=== PATIENT | male | born 1955 | race Caucasian/White ===

== ENCOUNTER 2016-09-02 09:32 | Inpatient (IN) | payer OTHER ==
[~2016-09-02] VITALS: Ht 182.9 cm; Wt 99.2 kg
[~2016-09-02 09:32] MED LIST: Aspirin PO; Cipro PO; FOLIC ACID1 MG PO; GLIMEPIRIDE2 MG PO; GLUCOPHAGE500 MG PO; Glucophage XR,Fortam PO; LANSOPRAZOLE15 MG PO; LEVITRA10 MG PO; LIBRIUM25 MG PO; LISINOPRIL-HCT1 EAC3; LOFIBRA,TRIGLI160 MG PO; Librium PO; MEDROL DOSEPAK4 MG PO; PRAVACHOL80 MG PO; Theragran PO; ULTRAM50 MG PO; VICODIN,LORT1 TABLET PO; ZANTAC150 MG PO; Zestoretic,Prinzide PO
[2016-09-02 09:54] LABS: POINT-OF-CARE METER ID UU13113778
[2016-09-02 10:18] LABS: BASOPHIL COUNT 0.1 K/uL (0-0.1); EOSINOPHIL (%) 0.5 % (0-5); HEMATOCRIT 34.9 % (38.0-50.0); IMMATURE GRANULOCYTE (%) 0.8 % (0.0-0.7); IMMATURE GRANULOCYTE COUNT 0.1 K/uL; INSTRUMENT ABS NEUTROPHIL CT 5.8 K/uL; LYMPHOCYTE COUNT 0.8 K/uL (1.0-2.8); MCH 34.8 PG (29.0-34.0); MCHC 35.8 G/DL (30.0-36.0); MCV 97.2 FL (86-99); MEAN PLAT.VOLUME 10.6 uM^3 (9.0-12.4); MONOCYTE (%) 8.1 % (3-12); MONOCYTE COUNT 0.6 K/uL (0-0.8); NEUTROPHIL COUNT 5.8 K/uL (1.8-6.4); PLATELET COUNT 118 K/uL (156-360); RBC DIS.WIDTH-CV 12.9 % (11.8-14.6); RBC DIS.WIDTH-SD 46.6 % (39-53); RED BLOOD COUNT 3.59 M/uL (4.00-5.50); WHITE BLOOD COUNT 7.3 K/uL (4.1-10.2)
[2016-09-02 10:27] LABS: CHLORIDE 94 mEq/L (99-109); POTASSIUM 3.1 mEq/L (3.7-5.4); SODIUM 131 mEq/L (136-147)
[2016-09-02 10:29] LABS: GLUCOSE 158 mg/dL (70-99)
[2016-09-02 10:30] LABS: ANION GAP 21 MEQ/L (2-14)
[2016-09-02 10:31] LABS: TOTAL BILIRUBIN 2.2 mg/dL (0.0-1.0)
[2016-09-02 10:32] LABS: ALKALINE PHOSPHATASE 98 IU/L (3-129); SERUM ETHYL ALCOHOL < 10 mg/dL
[2016-09-02 10:33] LABS: GFR ESTIMATE (CALCULATED) 50 mL/min/
[2016-09-02 10:34] LABS: UREA NITROGEN (BUN) 27 mg/dL (9-23)
[2016-09-02 10:36] LABS: LIPASE 676 U/L (1.0-51.0)
[2016-09-02] MEDS ORDERED: DICLOFENAC SODI50 MG PO (12:57)
[2016-09-02] MEDS ORDERED: OMEPRAZOLE40 M1 PO (12:57)
[2016-09-02] MEDS ORDERED: METFORMIN HCL1000 MG PO (12:57)
[2016-09-02] MEDS ORDERED: METFORMIN HCL500 MG PO (12:58)
[2016-09-02] MEDS ORDERED: ASPIRIN EC325 MG PO (12:58)
[2016-09-02 13:22] LABS: ADD MIUA? YES; BILIRUBIN NEGATIVE; BLOOD NEGATIVE; COLOR YELLOW ((YELLOW)); GLUCOSE (STRIP) 50; KETONES 20; LEUKOCYTES NEGATIVE; NITRITE NEGATIVE; PROTEIN (STRIP) 100; SPECIFIC GRAVITY 1.034 (1.000-1.030)
[2016-09-02 13:26] LABS: BACTERIA RARE /HPF; EPITHELIAL CELLS NONE SEEN /HPF; MUCUS TRACE /LPF; RED BLOOD CELLS 0-5 /HPF (0-5); UCUL ADDED? NO; WHITE BLOOD CELLS 0-5 /HPF (0-5)
[2016-09-02 15:50] VITALS: BP 137/79
[2016-09-02 19:30] VITALS: BP 114/61
[2016-09-02 23:43] VITALS: BP 129/84
[2016-09-03 00:01] LABS: POINT-OF-CARE USER ID 608261329
[2016-09-03 04:40] VITALS: BP 125/69
[2016-09-03 07:07] LABS: ALKALINE PHOSPHATASE 71 IU/L (3-129); ANION GAP 13 MEQ/L (2-14); CHLORIDE 101 MEQ/L (99-109); GFR ESTIMATE (CALCULATED) > 59 mL/min/; LIPASE 480 U/L (1.0-51.0); POTASSIUM 3.2 MEQ/L (3.7-5.4); SAMPLE HEMOLYSIS CHECK 0; SAMPLE ICTERIC CHECK 0; SAMPLE LIPEMIA CHECK 0; SODIUM 135 MEQ/L (136-147); TOTAL BILIRUBIN 1.5 MG/DL (0.0-1.0); UREA NITROGEN (BUN) 23 mg/dL (9-23)
[2016-09-03 07:10] LABS: GLUCOSE 105 mg/dL (70-99)
[2016-09-03 08:20] VITALS: BP 144/92
[2016-09-03 12:36] LABS: POINT-OF-CARE METER ID UU13113725
[2016-09-03 17:02] VITALS: BP 121/71
[2016-09-03 18:33] LABS: POINT-OF-CARE METER ID UU13113725
[2016-09-04 07:31] LABS: BASOPHIL COUNT 0.1 K/uL (0-0.1); EOSINOPHIL (%) 3.4 % (0-5); EOSINOPHIL COUNT 0.1 K/uL (0-0.3); HEMATOCRIT 26.6 % (38.0-50.0); INSTRUMENT ABS NEUTROPHIL CT 2.5 K/uL; LYMPHOCYTE COUNT 0.8 K/uL (1.0-2.8); MCH 35.6 PG (29.0-34.0); MCHC 35.7 G/DL (30.0-36.0); MCV 99.6 FL (86-99); MEAN PLAT.VOLUME 10.3 uM^3 (9.0-12.4); MONOCYTE (%) 9.1 % (3-12); MONOCYTE COUNT 0.4 K/uL (0-0.8); NEUTROPHIL (%) 63.9 % (45-76); NEUTROPHIL COUNT 2.5 K/uL (1.8-6.4); PLATELET COUNT 84 K/uL (156-360); RBC DIS.WIDTH-CV 13.7 % (11.8-14.6); RBC DIS.WIDTH-SD 49.4 % (39-53)
[2016-09-04 07:33] LABS: ANION GAP 15 MEQ/L (2-14); CHLORIDE 102 MEQ/L (99-109); GFR ESTIMATE (CALCULATED) > 59 mL/min/; GLUCOSE 91 mg/dL (70-99); LIPASE 364 U/L (1.0-51.0); POTASSIUM 3.3 MEQ/L (3.7-5.4); SAMPLE HEMOLYSIS CHECK 0; SAMPLE ICTERIC CHECK 0; SAMPLE LIPEMIA CHECK 0; SODIUM 137 MEQ/L (136-147); UREA NITROGEN (BUN) 16 mg/dL (9-23)
[2016-09-04 07:40] LABS: RED BLOOD COUNT 2.67 M/uL (4.00-5.50); WHITE BLOOD COUNT 3.9 K/uL (4.1-10.2)
[2016-09-04 12:00] VITALS: BP 135/76
[2016-09-04 17:07] VITALS: BP 137/85
[2016-09-04 19:51] VITALS: BP 154/79
[2016-09-04 22:38] VITALS: BP 139/89
[2016-09-05 03:16] VITALS: BP 131/75
[2016-09-05 05:14] LABS: BASOPHIL COUNT 0.1 K/uL (0-0.1); EOSINOPHIL (%) 2.7 % (0-5); EOSINOPHIL COUNT 0.1 K/uL (0-0.3); HEMATOCRIT 27.4 % (38.0-50.0); IMMATURE GRANULOCYTE (%) 2.2 % (0.0-0.7); IMMATURE GRANULOCYTE COUNT 0.1 K/uL; INSTRUMENT ABS NEUTROPHIL CT 2.4 K/uL; LYMPHOCYTE COUNT 0.7 K/uL (1.0-2.8); MCH 34.8 PG (29.0-34.0); MCHC 35.4 G/DL (30.0-36.0); MCV 98.2 FL (86-99); MEAN PLAT.VOLUME 10.2 uM^3 (9.0-12.4); MONOCYTE (%) 16.1 % (3-12); MONOCYTE COUNT 0.7 K/uL (0-0.8); NEUTROPHIL (%) 60.4 % (45-76); NEUTROPHIL COUNT 2.4 K/uL (1.8-6.4); PLATELET COUNT 101 K/uL (156-360); RBC DIS.WIDTH-CV 13.4 % (11.8-14.6); RBC DIS.WIDTH-SD 48.9 % (39-53); RED BLOOD COUNT 2.79 M/uL (4.00-5.50)
[2016-09-05 05:50] LABS: ANION GAP 12 MEQ/L (2-14); CHLORIDE 101 MEQ/L (99-109); GFR ESTIMATE (CALCULATED) > 59 mL/min/; GLUCOSE 113 mg/dL (70-99); LIPASE 280 U/L (1.0-51.0); POTASSIUM 2.9 MEQ/L (3.7-5.4); SAMPLE HEMOLYSIS CHECK 0; SAMPLE ICTERIC CHECK 0; SAMPLE LIPEMIA CHECK 0; SODIUM 137 MEQ/L (136-147); UREA NITROGEN (BUN) 9 mg/dL (9-23)
[2016-09-05 06:02] LABS: C-REACTIVE PROTEIN 17.6 MG/L (0-10)
[2016-09-05 09:05] VITALS: BP 159/92
[2016-09-05 11:10] LABS: POINT-OF-CARE METER ID UU13113725
[2016-09-05 16:33] LABS: POINT-OF-CARE METER ID UU13113725
[2016-09-05 18:09] VITALS: BP 127/81
[2016-09-05 21:09] LABS: POINT-OF-CARE METER ID UU13113725
[2016-09-05 23:53] VITALS: BP 154/87
[2016-09-06 06:49] VITALS: BP 141/80
[2016-09-06 08:00] LABS: EOSINOPHIL (%) 3.9 % (0-5); EOSINOPHIL COUNT 0.1 K/uL (0-0.3); HEMATOCRIT 26.8 % (38.0-50.0); IMMATURE GRANULOCYTE (%) 2.7 % (0.0-0.7); IMMATURE GRANULOCYTE COUNT 0.1 K/uL; INSTRUMENT ABS NEUTROPHIL CT 1.5 K/uL; LYMPHOCYTE COUNT 0.8 K/uL (1.0-2.8); MCH 34.4 PG (29.0-34.0); MCHC 34.7 G/DL (30.0-36.0); MCV 99.3 FL (86-99); MEAN PLAT.VOLUME 10.1 uM^3 (9.0-12.4); MONOCYTE (%) 21.4 % (3-12); MONOCYTE COUNT 0.7 K/uL (0-0.8); NEUTROPHIL (%) 45.8 % (45-76); NEUTROPHIL COUNT 1.5 K/uL (1.8-6.4); RBC DIS.WIDTH-CV 13.8 % (11.8-14.6); RBC DIS.WIDTH-SD 49.5 % (39-53); WHITE BLOOD COUNT 3.3 K/uL (4.1-10.2)
[2016-09-06 08:15] LABS: PLATELET COUNT 154 K/uL (156-360)
[2016-09-06 08:43] LABS: ANION GAP 8 MEQ/L (2-14); CHLORIDE 105 MEQ/L (99-109); GFR ESTIMATE (CALCULATED) > 59 mL/min/; GLUCOSE 123 mg/dL (70-99); LIPASE 223 U/L (1.0-51.0); POTASSIUM 3.4 MEQ/L (3.7-5.4); SAMPLE HEMOLYSIS CHECK 0; SAMPLE ICTERIC CHECK 0; SAMPLE LIPEMIA CHECK 0; SODIUM 138 MEQ/L (136-147); UREA NITROGEN (BUN) 9 mg/dL (9-23)
[2016-09-06 11:05] VITALS: BP 154/89
[2016-09-06] MEDS ORDERED: ASPIRIN EC325 MG PO (12:58)
[2016-09-06] MEDS ORDERED: KLOR-CON M2020 MEQ PO (12:59)
[2016-09-06] MEDS ORDERED: ZOCOR20 MG PO (13:14)
[2016-09-06] MEDS ORDERED: VALSARTAN160 MG PO (13:14)
== END 2016-09-06 13:35 | disposition home or self-care (01) | DRG 439 ==
LOC: EME 09:32 → 5EAST 14:10 → EDOF 14:10 → 5EAST 15:51
PROVIDERS: Emergency Medicine; Family Medicine Sports Medicine
DX: K85.90 Acute pancreatitis without necrosis or infection, unspecified (principal); K80.20 Calculus of gallbladder without cholecystitis without obstruction; L98.419 Non-pressure chronic ulcer of buttock with unspecified severity; F10.229 Alcohol dependence with intoxication, unspecified; E87.6 Hypokalemia; E87.1 Hypo-osmolality and hyponatremia; E11.9 Type 2 diabetes mellitus without complications; E86.0 Dehydration; I10 Essential (primary) hypertension; E78.5 Hyperlipidemia, unspecified; K21.9 Gastro-esophageal reflux disease without esophagitis; F41.9 Anxiety disorder, unspecified; M19.90 Unspecified osteoarthritis, unspecified site; L40.9 Psoriasis, unspecified; G47.00 Insomnia, unspecified; K76.0 Fatty (change of) liver, not elsewhere classified; H26.9 Unspecified cataract; Z87.891 Personal history of nicotine dependence
CPT/HCPCS: 74177; 76705; 80048; 80053; 81003; 82607; 82746; 82948; 83605; 83690; 85025; 86140; 93005; 99281; 99285; G0480; J1650; J1815; J1885; J2060; J2405; J3411; J3475; J3480; J7030; J7120

== ENCOUNTER 2016-10-11 21:06 | Inpatient (IN) | payer OTHER ==
[~2016-10-11] VITALS: Ht 182.9 cm; Wt 88.7 kg
[~2016-10-11 21:06] MED LIST changes: +ASPIRIN EC325 MG PO; +DICLOFENAC SODI50 MG PO; +KLOR-CON M2020 MEQ PO; +METFORMIN HCL1000 MG PO; +METFORMIN HCL500 MG PO; +OMEPRAZOLE40 M1 PO; +VALSARTAN160 MG PO; +ZOCOR20 MG PO
[2016-10-11 21:32] LABS: BASOPHIL COUNT 0.1 K/uL (0-0.1); EOSINOPHIL (%) 0.4 % (0-5); HEMATOCRIT 36.3 % (38.0-50.0); IMMATURE GRANULOCYTE (%) 0.2 % (0.0-0.7); INSTRUMENT ABS NEUTROPHIL CT 5.5 K/uL; MCH 33.1 PG (29.0-34.0); MCHC 33.1 G/DL (30.0-36.0); MCV 100.3 FL (86-99); MEAN PLAT.VOLUME 9.5 uM^3 (9.0-12.4); MONOCYTE (%) 7.4 % (3-12); MONOCYTE COUNT 0.6 K/uL (0-0.8); NEUTROPHIL (%) 66.3 % (45-76); NEUTROPHIL COUNT 5.5 K/uL (1.8-6.4); PLATELET COUNT 214 K/uL (156-360); RBC DIS.WIDTH-CV 14.1 % (11.8-14.6); RBC DIS.WIDTH-SD 52.6 % (39-53); RED BLOOD COUNT 3.62 M/uL (4.00-5.50); WHITE BLOOD COUNT 8.3 K/uL (4.1-10.2)
[2016-10-11 21:50] LABS: ADD MIUA? YES; BILIRUBIN NEGATIVE; BLOOD NEGATIVE; COLOR AMBER ((YELLOW)); GLUCOSE (STRIP) NEGATIVE; KETONES 5; LEUKOCYTES NEGATIVE; NITRITE NEGATIVE; PROTEIN (STRIP) 100; SPECIFIC GRAVITY 1.018 (1.000-1.030)
[2016-10-11 21:57] LABS: BACTERIA RARE /HPF; EPITHELIAL CELLS RARE /HPF; HYALINE CASTS 20-30 /LPF; MUCUS TRACE /LPF; RED BLOOD CELLS 0-5 /HPF (0-5); UCUL ADDED? NO; WHITE BLOOD CELLS 0-5 /HPF (0-5)
[2016-10-11 21:58] LABS: TROP-I INTERPRETATION NEGATIVE; TROPONIN-I < 0.01 ng/mL (0.0-0.30)
[2016-10-11 23:12] LABS: CHLORIDE 100 mEq/L (99-109); POTASSIUM 4.9 mEq/L (3.7-5.4); SODIUM 140 mEq/L (136-147)
[2016-10-11 23:15] LABS: GLUCOSE 120 mg/dL (70-99)
[2016-10-11 23:16] LABS: ANION GAP 18 MEQ/L (2-14)
[2016-10-11 23:17] LABS: TOTAL BILIRUBIN 0.9 mg/dL (0.0-1.0)
[2016-10-11 23:18] LABS: ALKALINE PHOSPHATASE 86 IU/L (3-129); SERUM ETHYL ALCOHOL 197 mg/dL
[2016-10-11 23:19] LABS: GFR ESTIMATE (CALCULATED) 22 mL/min/
[2016-10-11 23:20] LABS: UREA NITROGEN (BUN) 25 mg/dL (9-23)
[2016-10-11 23:22] LABS: LIPASE 93 U/L (1.0-51.0)
[2016-10-12] MEDS ORDERED: ACITRETIN25 MG PO (00:36)
[2016-10-12] MEDS ORDERED: TRAZODONE HCL50 MG PO (00:37)
[2016-10-12] MEDS ORDERED: CALMOSEPTINE O120 GM TP (00:37)
[2016-10-12] MEDS ORDERED: VALSARTAN160 MG PO (00:38)
[2016-10-12 01:38] LABS: CREATINE KINASE 97 IU/L (1-294)
[2016-10-12 08:50] LABS: MCH 33.2 PG (29.0-34.0); MCHC 32.4 G/DL (30.0-36.0); MCV 102.5 FL (86-99); PLATELET COUNT 157 K/uL (156-360); RBC DIS.WIDTH-CV 13.9 % (11.8-14.6); RBC DIS.WIDTH-SD 52.7 % (39-53); RED BLOOD COUNT 3.22 M/uL (4.00-5.50); WHITE BLOOD COUNT 6.9 K/uL (4.1-10.2)
[2016-10-12 09:15] LABS: ANION GAP 12 MEQ/L (2-14); CHLORIDE 104 MEQ/L (99-109); GFR ESTIMATE (CALCULATED) 43 mL/min/; GLUCOSE 142 mg/dL (70-99); LIPASE 83 U/L (1.0-51.0); SAMPLE HEMOLYSIS CHECK 0; SAMPLE ICTERIC CHECK 0; SAMPLE LIPEMIA CHECK 0; SODIUM 138 MEQ/L (136-147); UREA NITROGEN (BUN) 21 mg/dL (9-23)
[2016-10-12 16:04] VITALS: BP 141/72
[2016-10-12 19:44] VITALS: BP 130/82
[2016-10-12 23:56] VITALS: BP 148/83
[2016-10-13 04:52] VITALS: BP 122/60
[2016-10-13 06:48] LABS: BASOPHIL COUNT 0.1 K/uL (0-0.1); EOSINOPHIL (%) 3.8 % (0-5); EOSINOPHIL COUNT 0.2 K/uL (0-0.3); HEMATOCRIT 29.8 % (38.0-50.0); INSTRUMENT ABS NEUTROPHIL CT 2.5 K/uL; LYMPHOCYTE COUNT 1.1 K/uL (1.0-2.8); MCH 34.9 PG (29.0-34.0); MCHC 34.6 G/DL (30.0-36.0); MEAN PLAT.VOLUME 9.9 uM^3 (9.0-12.4); MONOCYTE (%) 7.7 % (3-12); MONOCYTE COUNT 0.3 K/uL (0-0.8); NEUTROPHIL (%) 59.6 % (45-76); NEUTROPHIL COUNT 2.5 K/uL (1.8-6.4); PLATELET COUNT 123 K/uL (156-360); RBC DIS.WIDTH-CV 13.8 % (11.8-14.6); RBC DIS.WIDTH-SD 50.9 % (39-53); RED BLOOD COUNT 2.95 M/uL (4.00-5.50); WHITE BLOOD COUNT 4.2 K/uL (4.1-10.2)
[2016-10-13 07:45] LABS: ANION GAP 9 MEQ/L (2-14); C-REACTIVE PROTEIN 26.4 MG/L (0-10); CHLORIDE 105 MEQ/L (99-109); GFR ESTIMATE (CALCULATED) > 59 mL/min/; POTASSIUM 4.2 MEQ/L (3.7-5.4); SAMPLE HEMOLYSIS CHECK 0; SAMPLE ICTERIC CHECK 0; SAMPLE LIPEMIA CHECK 0; SERUM ETHYL ALCOHOL < 10 mg/dL; SODIUM 138 MEQ/L (136-147); UREA NITROGEN (BUN) 14 mg/dL (9-23)
[2016-10-13 07:50] LABS: GLUCOSE 84 mg/dL (70-99)
[2016-10-13 08:15] VITALS: BP 140/79
[2016-10-13 10:43] LABS: ERTH.SED.RATE 12 MM/HR (0-20)
[2016-10-13 11:38] VITALS: BP 148/84
[2016-10-13 16:13] VITALS: BP 152/86
[2016-10-13 19:36] VITALS: BP 150/89
[2016-10-13 23:58] VITALS: BP 159/84
[2016-10-14 04:42] VITALS: BP 147/76
[2016-10-14 06:56] LABS: BASOPHIL COUNT 0.1 K/uL (0-0.1); EOSINOPHIL (%) 5.1 % (0-5); EOSINOPHIL COUNT 0.2 K/uL (0-0.3); HEMATOCRIT 30.1 % (38.0-50.0); IMMATURE GRANULOCYTE (%) 0.2 % (0.0-0.7); INSTRUMENT ABS NEUTROPHIL CT 2.5 K/uL; LYMPHOCYTE COUNT 1.2 K/uL (1.0-2.8); MCH 33.2 PG (29.0-34.0); MCHC 33.6 G/DL (30.0-36.0); MEAN PLAT.VOLUME 10.2 uM^3 (9.0-12.4); MONOCYTE (%) 8.9 % (3-12); MONOCYTE COUNT 0.4 K/uL (0-0.8); NEUTROPHIL (%) 57.3 % (45-76); NEUTROPHIL COUNT 2.5 K/uL (1.8-6.4); PLATELET COUNT 117 K/uL (156-360); RBC DIS.WIDTH-CV 13.5 % (11.8-14.6); RBC DIS.WIDTH-SD 48.6 % (39-53); RED BLOOD COUNT 3.04 M/uL (4.00-5.50); WHITE BLOOD COUNT 4.3 K/uL (4.1-10.2)
[2016-10-14 07:20] LABS: ANION GAP 9 MEQ/L (2-14); CHLORIDE 106 MEQ/L (99-109); GFR ESTIMATE (CALCULATED) > 59 mL/min/; GLUCOSE 99 mg/dL (70-99); SAMPLE HEMOLYSIS CHECK 0; SAMPLE ICTERIC CHECK 0; SAMPLE LIPEMIA CHECK 0; SODIUM 138 MEQ/L (136-147); UREA NITROGEN (BUN) 9 mg/dL (9-23)
[2016-10-14 08:16] VITALS: BP 136/94
[2016-10-14 12:09] VITALS: BP 152/87
[2016-10-14 16:30] VITALS: BP 121/70
[2016-10-14 19:16] VITALS: BP 140/88
[2016-10-15 01:02] VITALS: BP 152/87
[2016-10-15 03:45] VITALS: BP 143/78
[2016-10-15 06:42] LABS: BASOPHIL COUNT 0.1 K/uL (0-0.1); EOSINOPHIL (%) 3.6 % (0-5); EOSINOPHIL COUNT 0.2 K/uL (0-0.3); HEMATOCRIT 29.5 % (38.0-50.0); IMMATURE GRANULOCYTE (%) 0.4 % (0.0-0.7); INSTRUMENT ABS NEUTROPHIL CT 3.1 K/uL; MCH 33.7 PG (29.0-34.0); MCHC 33.9 G/DL (30.0-36.0); MCV 99.3 FL (86-99); MEAN PLAT.VOLUME 9.8 uM^3 (9.0-12.4); MONOCYTE (%) 12.9 % (3-12); MONOCYTE COUNT 0.6 K/uL (0-0.8); NEUTROPHIL (%) 61.6 % (45-76); NEUTROPHIL COUNT 3.1 K/uL (1.8-6.4); PLATELET COUNT 98 K/uL (156-360); RBC DIS.WIDTH-CV 13.5 % (11.8-14.6); RBC DIS.WIDTH-SD 49.7 % (39-53); RED BLOOD COUNT 2.97 M/uL (4.00-5.50)
[2016-10-15 07:04] VITALS: BP 155/92
[2016-10-15 07:04] LABS: ANION GAP 8 MEQ/L (2-14); CHLORIDE 107 MEQ/L (99-109); GFR ESTIMATE (CALCULATED) > 59 mL/min/; GLUCOSE 118 mg/dL (70-99); POTASSIUM 3.8 MEQ/L (3.7-5.4); SAMPLE HEMOLYSIS CHECK 0; SAMPLE ICTERIC CHECK 0; SAMPLE LIPEMIA CHECK 0; SODIUM 138 MEQ/L (136-147); UREA NITROGEN (BUN) 8 mg/dL (9-23)
[2016-10-15 07:05] LABS: MAGNESIUM 1.6 mg/dl (1.3-2.7)
[2016-10-15 15:02] VITALS: BP 134/79
== END 2016-10-15 18:05 | disposition home or self-care (01) | DRG 684 ==
LOC: EME → EDBD 21:06 → EME 21:06 → EDOF 10-12 02:16 → 3EAST 10-12 02:16
PROVIDERS: Emergency Medicine; Family Medicine Sports Medicine; Internal Medicine Nephrology
DX: N17.9 Acute kidney failure, unspecified (principal); F10.129 Alcohol abuse with intoxication, unspecified; Y90.6 Blood alcohol level of 120-199 mg/100 ml; E86.0 Dehydration; E83.42 Hypomagnesemia; E83.39 Other disorders of phosphorus metabolism; E11.22 Type 2 diabetes mellitus with diabetic chronic kidney disease; I12.9 Hypertensive chronic kidney disease with stage 1 through stage 4 chronic kidney disease, or unspecified chronic kidney disease; N18.3 Chronic kidney disease, stage 3 (moderate); K29.80 Duodenitis without bleeding; K57.30 Diverticulosis of large intestine without perforation or abscess without bleeding; I95.9 Hypotension, unspecified; K76.0 Fatty (change of) liver, not elsewhere classified; K80.20 Calculus of gallbladder without cholecystitis without obstruction; K21.9 Gastro-esophageal reflux disease without esophagitis; M54.5 Low back pain; E78.5 Hyperlipidemia, unspecified; L40.9 Psoriasis, unspecified; F41.9 Anxiety disorder, unspecified; F32.9 Major depressive disorder, single episode, unspecified; H26.9 Unspecified cataract; M19.90 Unspecified osteoarthritis, unspecified site; R07.9 Chest pain, unspecified; R25.1 Tremor, unspecified; R60.9 Edema, unspecified
CPT/HCPCS: 71010; 71275; 74177; 80048; 80053; 80069; 81003; 82272; 82550; 83605; 83690; 83735; 84484; 85025; 85027; 85651; 86140; 86900; 86901; 87045; 87046; 87177; 87329; 87506; 93005; 99281; 99285; C9113; G0480; J1650; J2060; J3411; J3475; J7030; S0030

== ENCOUNTER 2016-10-21 22:24 | Emergency (ER) | payer OTHER ==
[~2016-10-21] VITALS: Ht 182.9 cm; Wt 93.8 kg
[~2016-10-21 22:24] MED LIST changes: +ACITRETIN25 MG PO; +CALMOSEPTINE O120 GM TP; +TRAZODONE HCL50 MG PO
[2016-10-21 22:33] VITALS: BP 137/93
== END 2016-10-21 23:54 | disposition left against medical advice (07) ==
LOC: EXP 22:24 → EME 22:24 → EXP 23:54
DX: M54.9 Dorsalgia, unspecified (principal); F10.10 Alcohol abuse, uncomplicated
CPT/HCPCS: 81003; 99281; 99283

== ENCOUNTER 2016-10-23 22:19 | Emergency (ER) | payer OTHER ==
[~2016-10-23] VITALS: Ht 182.9 cm; Wt 95.0 kg
[2016-10-23 23:55] LABS: ADD MIUA? YES; BILIRUBIN NEGATIVE; BLOOD NEGATIVE; COLOR YELLOW ((YELLOW)); GLUCOSE (STRIP) NEGATIVE; KETONES 5; LEUKOCYTES NEGATIVE; NITRITE NEGATIVE; PROTEIN (STRIP) 100; SPECIFIC GRAVITY 1.018 (1.000-1.030)
[2016-10-24 00:05] LABS: BACTERIA NONE SEEN /HPF; EPITHELIAL CELLS NONE SEEN /HPF; MUCUS TRACE /LPF; RED BLOOD CELLS 0-5 /HPF (0-5); UCUL ADDED? NO; WHITE BLOOD CELLS 0-5 /HPF (0-5)
[2016-10-24 00:26] VITALS: BP 110/76
[2016-10-24] MEDS ORDERED: MEDROL DOSEPAK4 MG PO (06:10)
[2016-10-24] MEDS ORDERED: NAPROSYN500 MG PO (06:10)
[2016-10-25] MEDS ORDERED: TRAMADOL HCL50 MG PO (07:29)
== END 2016-10-24 00:26 | disposition home or self-care (01) ==
LOC: EME 22:19
PROVIDERS: Physician Assistant
DX: M54.9 Dorsalgia, unspecified (principal); E11.9 Type 2 diabetes mellitus without complications
CPT/HCPCS: 81003; 99281; 99283

== ENCOUNTER 2016-10-24 05:25 | Emergency (ER) | payer OTHER ==
[~2016-10-24] VITALS: Ht 182.9 cm; Wt 97.3 kg
[2016-10-24] MEDS ORDERED: MEDROL DOSEPAK4 MG PO (06:10)
[2016-10-24] MEDS ORDERED: NAPROSYN500 MG PO (06:10)
[2016-10-24 06:21] VITALS: BP 125/90
[2016-10-25] MEDS ORDERED: TRAMADOL HCL50 MG PO (07:29)
== END 2016-10-24 06:23 | disposition home or self-care (01) ==
LOC: EME → EDBD 05:25 → EME 05:25
DX: M54.5 Low back pain (principal)
CPT/HCPCS: 99281; 99284; J1100; J1885; J3360

== ENCOUNTER 2016-10-25 06:15 | Emergency (ER) | payer OTHER ==
[~2016-10-25] VITALS: Ht 182.9 cm; Wt 92.0 kg
[~2016-10-25 06:15] MED LIST changes: +NAPROSYN500 MG PO
[2016-10-25] MEDS ORDERED: TRAMADOL HCL50 MG PO (07:29)
[2016-10-25 08:01] VITALS: BP 143/95
== END 2016-10-25 08:02 | disposition home or self-care (01) ==
LOC: EME → EDBD 06:15 → EME 06:15
DX: M54.5 Low back pain (principal); I10 Essential (primary) hypertension; E11.9 Type 2 diabetes mellitus without complications; Z79.84 Long term (current) use of oral hypoglycemic drugs; K21.9 Gastro-esophageal reflux disease without esophagitis
CPT/HCPCS: 99281; 99283; J1885

== ENCOUNTER 2016-10-30 07:26 | Emergency (ER) | payer OTHER ==
[~2016-10-30] VITALS: Ht 182.9 cm; Wt 92.9 kg
[~2016-10-30 07:26] MED LIST changes: +TRAMADOL HCL50 MG PO
[2016-10-30 09:13] VITALS: BP 131/87
== END 2016-10-30 09:13 | disposition home or self-care (01) ==
LOC: EME 07:26
DX: M54.5 Low back pain (principal); E11.9 Type 2 diabetes mellitus without complications; I10 Essential (primary) hypertension; K21.9 Gastro-esophageal reflux disease without esophagitis; Z79.84 Long term (current) use of oral hypoglycemic drugs; Z79.899 Other long term (current) drug therapy
CPT/HCPCS: 99281; 99284; J1885

== ENCOUNTER 2016-11-07 14:59 | Emergency (ER) | payer OTHER ==
[~2016-11-07] VITALS: Ht 182.9 cm; Wt 100.9 kg
[2016-11-07 16:40] LABS: HEMATOCRIT 34.4 % (38.0-50.0); MCH 33.5 PG (29.0-34.0); MCV 98.6 FL (86-99); MEAN PLAT.VOLUME 9.6 uM^3 (9.0-12.4); PLATELET COUNT 111 K/uL (156-360); RBC DIS.WIDTH-CV 14.6 % (11.8-14.6); RBC DIS.WIDTH-SD 52.4 % (39-53); RED BLOOD COUNT 3.49 M/uL (4.00-5.50); WHITE BLOOD COUNT 6.5 K/uL (4.1-10.2)
[2016-11-07 16:56] LABS: CHLORIDE 102 mEq/L (99-109); POTASSIUM 4.6 mEq/L (3.7-5.4); SODIUM 140 mEq/L (136-147)
[2016-11-07 16:58] LABS: GLUCOSE 119 mg/dL (70-99)
[2016-11-07 16:59] LABS: ANION GAP 18 MEQ/L (2-14)
[2016-11-07 17:01] LABS: GFR ESTIMATE (CALCULATED) > 59 mL/min/; SERUM ETHYL ALCOHOL 365 mg/dL
[2016-11-07 17:02] LABS: UREA NITROGEN (BUN) 20 mg/dL (9-23)
[2016-11-07 18:08] LABS: ADD MIUA? NO; BILIRUBIN NEGATIVE; BLOOD NEGATIVE; COLOR YELLOW ((YELLOW)); GLUCOSE (STRIP) NEGATIVE; KETONES 5; LEUKOCYTES NEGATIVE; NITRITE NEGATIVE; PROTEIN (STRIP) 30; SPECIFIC GRAVITY 1.015 (1.000-1.030); UROBILINOGEN 0.2 MG/DL (0.2-1.0)
[2016-11-07] MEDS ORDERED: ULTRAM50 MG PO (18:14)
[2016-11-07 18:27] LABS: ADD MEDTOX COMMENT Y; AMPHETAMINE NEGATIVE (500 ng/mL); BARBITURATES NEGATIVE (200 ng/mL); BENZODIAZEPINES PRESUMPTIVE POSITIVE (150 ng/mL); COCAINE NEGATIVE (150 ng/mL); INTERNAL CONTROLS VALID? YES; METHADONE NEGATIVE (200 ng/mL); METHAMPHETAMINE NEGATIVE (500 ng/mL); OPIATES (MORPHINE) NEGATIVE (100 ng/mL); OXYCODONE NEGATIVE (100 ng/mL); PHENCYCLIDINE NEGATIVE (25 ng/mL); PROPOXYPHENE NEGATIVE (300 ng/mL); THC CANNABINOIDS NEGATIVE (50 ng/mL); TRICYCLIC ANTIDEPRESSANTS NEGATIVE (300 ng/mL)
[2016-11-07 18:38] VITALS: BP 123/68
[2016-11-07 19:09] LABS: BENZODIAZEPINES, URINE SCREEN POSITIVE (200 ng/mL)
== END 2016-11-07 18:39 | disposition home or self-care (01) ==
LOC: EME 14:59
PROVIDERS: Emergency Medicine
DX: M48.54XA Collapsed vertebra, not elsewhere classified, thoracic region, initial encounter for fracture (principal); F10.129 Alcohol abuse with intoxication, unspecified; Y90.8 Blood alcohol level of 240 mg/100 ml or more; S00.93XA Contusion of unspecified part of head, initial encounter; S22.42XA Multiple fractures of ribs, left side, initial encounter for closed fracture; W18.30XA Fall on same level, unspecified, initial encounter; Y92.002 Bathroom of unspecified non-institutional (private) residence as the place of occurrence of the external cause; E11.9 Type 2 diabetes mellitus without complications; Z79.84 Long term (current) use of oral hypoglycemic drugs
CPT/HCPCS: 70450; 72131; 80048; 81003; 84999; 85027; 99281; 99284; G0480